=== PATIENT | female | born 1970 | race Two or more races ===

== ENCOUNTER 2024-02-14 12:09 | Emergency (ER) | payer OTHER ==
[2024-02-14 12:16] VITALS: RESP 18; BMI 24.3
[2024-02-14 13:32] LABS: BASO % 1.2 % (0-2.0); EOS % 5.2 % (0-4.5); HEMATOCRIT 38.4 % (32.4-45.2); HEMOGLOBIN 12.4 GM/dL (10.7-15.3); LYMPH % 36.2 % (8-40); MCH 26.5 pg (25.7-33.7); MCHC 32.3 g/dl (32.0-36.0); MEAN PLT VOLUME 7.6 fl (7.5-11.1); MONO % 8.6 % (3.8-10.2); NEUT % 48.8 % (42.8-82.8); PLATELET COUNT 246 10^3/uL (134-434); RBC 4.69 M/mm3 (3.60-5.2); RDW 14.8 % (11.6-15.6); WHITE BLOOD COUNT 6.6 K/mm3 (4.0-10.0)
[2024-02-14 14:09] LABS: POTASSIUM 4.1 mmol/L (3.5-5.1)
[2024-02-14 14:11] LABS: CALCIUM 8.8 mg/dL (8.5-10.1)
[2024-02-14 14:12] LABS: ALBUMIN 3.4 g/dl (3.4-5.0); BLOOD UREA NITROGEN 16.4 mg/dL (7-18); MAGNESIUM 2.1 mg/dL (1.8-2.4)
[2024-02-14] MEDS: LACTATED RINGERS SOLUTION 1000 ML INFUS.BAG IV ONE (14:14)
[2024-02-14 14:16] LABS: BILIRUBIN,TOTAL 0.3 mg/dL (0.2-1); TOT PROT 6.8 g/dl (6.4-8.2)
[2024-02-14 14:23] LABS: URINE APPEARANCE CLEAR; URINE BILIRUBIN NEGATIVE (NEGATIVE); URINE COLOR YELLOW; URINE GLUCOSE (UA) NEGATIVE (NEGATIVE); URINE KETONE NEGATIVE (NEGATIVE); URINE LEUK ESTERASE NEGATIVE (NEGATIVE); URINE NITRITE NEGATIVE (NEGATIVE); URINE PROTEIN NEGATIVE (NEGATIVE); URINE UROBILINOGEN 0.2 mg/dL (0.2-1.0)
[2024-02-14 15:01] VITALS: BP 118/74; PULSE 70; TEMP 97.8
== END 2024-02-14 15:10 | disposition home or self-care (01) ==
LOC: JER 12:09
DX: R42 Dizziness and giddiness (principal); R53.1 Weakness; Z20.822 Contact with and (suspected) exposure to COVID-19
CPT/HCPCS: 0241U-QW; 36415; 71046-TC-FY; 80053; 81003; 83735; 84484; 85025; 86850; 86900; 86901; 87086; 93005; 93010; 99285-25

== ENCOUNTER 2024-03-16 08:16 | Emergency (ER) | payer OTHER ==
[2024-03-16 08:47] VITALS: BP 119/67; PULSE 105; RESP 17; TEMP 99.2; BMI 24.7
[2024-03-16] MEDS ORDERED: LIDOCAINE 4% PATCH TP ONE (09:49)
[2024-03-16] MEDS ORDERED: ACETAMINOPHEN 325 MG TABLET (FP) ONE (09:49)
[2024-03-16] MEDS: LIDOCAINE 5% TOPICAL PATCH TP ONE (09:51)
[2024-03-16] MEDS: ACETAMINOPHEN 500 MG TABLET (FP) PO ONE (09:51)
[2024-03-16 10:19] LABS: URINE APPEARANCE CLEAR; URINE BILIRUBIN NEGATIVE (NEGATIVE); URINE COLOR YELLOW; URINE GLUCOSE (UA) NEGATIVE (NEGATIVE); URINE KETONE NEGATIVE (NEGATIVE); URINE LEUK ESTERASE NEGATIVE (NEGATIVE); URINE NITRITE NEGATIVE (NEGATIVE); URINE PROTEIN NEGATIVE (NEGATIVE); URINE UROBILINOGEN 0.2 mg/dL (0.2-1.0)
[2024-03-16 10:23] LABS: BASO % 1.3 % (0-2.0); EOS % 8.1 % (0-4.5); HEMATOCRIT 36.4 % (32.4-45.2); HEMOGLOBIN 11.9 GM/dL (10.7-15.3); LYMPH % 23.2 % (8-40); MCH 26.8 pg (25.7-33.7); MCHC 32.9 g/dl (32.0-36.0); MEAN CELL VOLUME 81.7 fl (80-96); MEAN PLT VOLUME 7.6 fl (7.5-11.1); MONO % 10.2 % (3.8-10.2); NEUT % 57.2 % (42.8-82.8); PLATELET COUNT 238 10^3/uL (134-434); RBC 4.45 M/mm3 (3.60-5.2); RDW 14.7 % (11.6-15.6); WHITE BLOOD COUNT 7.3 K/mm3 (4.0-10.0)
[2024-03-16 10:45] LABS: HCG,QUALITATIVE URINE Negative
[2024-03-16 10:46] LABS: POTASSIUM 4.4 mmol/L (3.5-5.1)
[2024-03-16 10:48] LABS: ALBUMIN 3.7 g/dl (3.4-5.0); CALCIUM 9.4 mg/dL (8.5-10.1)
[2024-03-16 10:49] LABS: BLOOD UREA NITROGEN 9.7 mg/dL (7-18)
[2024-03-16 10:52] LABS: CREATININE 0.8 mg/dL (0.55-1.3)
[2024-03-16 10:53] LABS: BILIRUBIN,TOTAL 0.5 mg/dL (0.2-1); TOT PROT 7.1 g/dl (6.4-8.2)
[2024-03-16] MEDS ORDERED: METHOCARBAMOL 500 MG TABLET ONE (11:33)
[2024-03-16] MEDS ORDERED: KETOROLAC TROMETHAMINE 30 MG/1 ML VIAL ONE (11:33)
[2024-03-16] MEDS: KETOROLAC TROMETHAMINE 30 MG/1 ML VIAL IM ONE (11:35)
[2024-03-16] MEDS: METHOCARBAMOL 500 MG TABLET PO ONE (11:35)
[2024-03-16] MEDS ORDERED: LIDOCAINE PATCH REMOVAL MC ONE (22:00)
== END 2024-03-16 12:13 | disposition home or self-care (01) ==
LOC: JER 08:16 → JERFT 08:16
PROC: 3E0233Z Introduction of Anti-inflammatory into Muscle, Percutaneous Approach (ICD-10-PCS; principal; 2024-03-16)
DX: R10.9 Unspecified abdominal pain (principal); M54.50 Low back pain, unspecified; R07.81 Pleurodynia
CPT/HCPCS: 36415; 71046-TC-FY; 80053; 81003; 84703; 85025; 87086; 93005; 93010; 99285-25